=== PATIENT | male | born 1990 | race Caucasian/White ===

== ENCOUNTER 2017-03-02 02:52 | Emergency (ER) | payer MEDICAID ==
[2017-03-02] MEDS ORDERED: IBUPROFEN 600 MG TABLET PO STA (04:03)
[2017-03-02] MEDS ORDERED: IBUPROFEN 600 MG TABLET PO ONE (04:04)
== END 2017-03-02 04:10 | disposition home or self-care (01) ==
DX: R51 Headache (principal); F17.200 Nicotine dependence, unspecified, uncomplicated
CPT/HCPCS: 70450; 99283; A9270